=== PATIENT | male | born 1965 | race Caucasian/White ===

== ENCOUNTER 2017-08-06 09:55 | Emergency (ER) | payer OTHER ==
[~2017-08-06] VITALS: Ht 188 cm; Wt 106.6 kg
--- NOTE | 2017-08-06 10:49 | PHYS DOC ---
Past History Past Medical History: No Pertinent History Past Surgical History: Other Additional Smoking Information: CHEWS TOBACCO Alcohol Use: Occasionally Drug Use: None Adult General Chief Complaint Chief Complaint: BACK PAIN OR INJURY HPI HPI Patient is a 52 year old male who presents with back pain. States he's had a history of bulging disks in back pain over 20 years and it flares up once twice a year and he has a back brace at home and takes [id number] meds or naproxen for it. Today slipped and fell on the ice and landed on his buttocks. He denies any loss of consciousness. He denies any numbness tingling in his legs or weakness. He denies any urinary incontinence. States his pain is through his lumbar area. He has applied ice prior to arrival see that would help. Review of Systems Review of Systems Constitutional: Denies fever or chills [] Eyes: Denies change in visual acuity, redness, or eye pain [] HENT: Denies nasal congestion or sore throat [] Respiratory: Denies cough or shortness of breath [] Cardiovascular: No additional information not addressed in HPI [] GI: Denies abdominal pain, nausea, vomiting, bloody stools or diarrhea [] : Denies dysuria or hematuria [] Musculoskeletal: Positive for lumbar back pain Integument: Denies rash or skin lesions [] Neurologic: Denies headache, focal weakness or sensory changes [] Endocrine: Denies polyuria or polydipsia [] All other systems were reviewed and found to be within normal limits, except as documented in this note. Current Medications Current Medications Current Medications Medications (Trade) Dose Ordered Sig/[facility] Start Time Stop Time Status Last Admin Dose Admin Acetaminophen/ Hydrocodone Bitart (Lortab 5/325) 2 tab 1X ONCE 08/06/17 11:00 08/06/17 11:01 Ondansetron HCl (Zofran Odt) 4 mg 1X ONCE 08/06/17 11:00 08/06/17 11:01 Allergies Allergies Allergies Coded Allergies Type Severity Reaction Last Updated Verified No Known Drug Allergies 08/06/17 No Physical Exam Physical Exam Constitutional: Well developed, well nourished, no acute distress, non-toxic appearance. [] HENT: Normocephalic, atraumatic, bilateral external ears normal, oropharynx moist, no oral exudates, nose normal. [] Eyes: PERRLA, EOMI, conjunctiva normal, no discharge. [] Neck: Normal range of motion, no tenderness, supple, no stridor. [] Cardiovascular:Heart rate regular rhythm, no murmur [] Lungs & Thorax: Bilateral breath sounds clear to auscultation [] Abdomen: Bowel sounds normal, soft, no tenderness, no masses, no pulsatile masses. [] Skin: Warm, dry, no erythema, no rash. [] Back: Tender to palpation in the lumbar area, no step-offs appreciated, tender palpation paraspinally as well, no CVA tenderness. [] Extremities: No tenderness, no cyanosis, no clubbing, ROM intact, no edema. [] Neurologic: Alert and oriented X 3, normal motor function, normal sensory function, no focal deficits noted. [] Psychologic: Affect normal, judgement normal, mood normal. [] Current Patient Data Vital Signs Vital Signs Date Time Temp Pulse Resp B/P (MAP) Pulse Ox O2 Delivery O2 Flow Rate FiO2 08/06/17 10:12 97.8 60 20 96 Room Air EKG EKG [] Radiology/Procedures Radiology/[place] [address] IMAGING REPORT Signed PATIENT: YUE CANDELARIA ACCOUNT: [id number] : 1965 LOCATION: ER AGE: 52 SEX: M EXAM STATUS: REG ER ORD. PHYSICIAN: ANDREA SUÁREZ MD REASON: back pain PROCEDURE: LUMBAR SPINE MIN 4V Lumbar spine, 5 views, 08/06/2017: History: Back pain, fall There is a moderate vertebral compression fracture at L4. The fracture is most likely recent. There is mild splaying of the fracture fragments with anterior displacement of a prominent anterior fragment. The other lumbar vertebral heights are well-maintained. There are mild scattered marginal spurs. There are mild degenerative changes involving scattered facet joints. IMPRESSION: 1. Moderate L4 vertebral compression fracture, probably recent. 2. Mild to moderate scattered degenerative changes. DICTATED AND SIGNED BY: MIRANDA CASTANEDA MD DATE: 08/06/17 1120 CC: ANDREA SUÁREZ MD; ALLISON HUFF MD ~ Impressions: L4 compression fracture Course & Med Decision Making Course & Med Decision Making Pertinent Labs and Imaging studies reviewed. (See chart for details) Patient is neurovascularly intact. His pain is better after 2 [place] as it is nausea has improved as well with Zofran. [place] as a numbness saddle anesthesia weakness or other concerns. He and his are agreeable plan. He is instructed not to drink any alcohol while taking pain meds or drive. He's also instructed to cut down or stop tobacco use. We also spoke about possible options of vertebroplasty versus following up with the neurosurgeon he states [place] the services [place]. Dragon Disclaimer Dragon Disclaimer This electronic medical record was generated, in whole or in part, using a voice recognition dictation system. Departure Departure: Impression: Primary Impression: Compression fracture of L4 lumbar vertebra Disposition: 01 HOME, SELF-CARE Condition: STABLE Referrals: ALLISON HUFF MD (PCP) Patient Instructions: Lumbar Fracture Additional Instructions: You have a compression fraction of L4 in your back. Your being discharged home with [place] which is a narcotic pain medicine. You can use this medicine as needed for your pain. Please don't drive or drink alcohol when taking this medicine as it can impair judgment and make you sleepy. Please don't use any Tylenol when he uses and [place] as there is already Tylenol and [place]. You are also being discharged with Zofran, which is an oral dissolvable tablet for nausea. Please use this as needed and as instructed. You need to stop using nicotine as this has proven to delay healing. You will need to follow-up with neurosurgery or interventional radiology and have them evaluate to see if you need vertebroplasty or other services. He states he can obtain this through your primary care physician's office. Return back to the ER if you have any numbness or weakness in your genitals, butt, or legs, or if you have severe pain. Scripts Ondansetron (ZOFRAN ODT) 4 Mg Tab.rapdis 1 TAB SL Q8HRS Y for NAUSEA, #8 TAB Prov: ANDREA SUÁREZ MD 08/06/17 Hydrocodone Bit/Acetaminophen (NORCO 5-325 TABLET) 1 Each Tablet 1-2 TAB PO PRN Q6HRS Y for PAIN, #24 TAB 0 Refills Prov: ANDREA SUÁREZ MD 08/06/17 Problem Qualifiers Primary Impression: Compression fracture of L4 lumbar vertebra Encounter type: initial encounter Fracture type: closed Qualified Codes: S32.040A - Wedge compression fracture of fourth lumbar vertebra, initial encounter for closed fracture ANDREA SUÁREZ MD Aug 06, 2017 10:49
[2017-08-06] MEDS ORDERED: ONDANSETRON ODT 4 MG TAB.RAPDIS PO ONE (11:00)
[2017-08-06] MEDS ORDERED: HYDROcodone/APAP 5/325MG 1 TAB TABLET PO ONE (11:00)
--- NOTE | 2017-08-06 11:27 | RAD ---
Lumbar spine, 5 views, 08/06/2017: History: Back pain, fall There is a moderate vertebral compression fracture at L4. The fracture is most likely recent. There is mild splaying of the fracture fragments with anterior displacement of a prominent anterior fragment. The other lumbar vertebral heights are well-maintained. There are mild scattered marginal spurs. There are mild degenerative changes involving scattered facet joints. IMPRESSION: 1. Moderate L4 vertebral compression fracture, probably recent. 2. Mild to moderate scattered degenerative changes.
[2017-08-06] MEDS ORDERED: ONDA4TAB10 SL (11:58)
[2017-08-06] MEDS ORDERED: HYDR-971 PO (11:58)
[2017-08-06 12:11] VITALS: BP 118/78
== END 2017-08-06 12:16 | disposition home or self-care (01) ==
LOC: ER 09:55
DX: S32.040A Wedge compression fracture of fourth lumbar vertebra, initial encounter for closed fracture (principal); F17.220 Nicotine dependence, chewing tobacco, uncomplicated; W00.0XXA Fall on same level due to ice and snow, initial encounter; Y93.89 Activity, other specified; Y99.8 Other external cause status; Y92.89 Other specified places as the place of occurrence of the external cause
CPT/HCPCS: 72110; 99284; Q0162

== ENCOUNTER 2017-10-31 05:25 | Inpatient (IN) | payer OTHER ==
[~2017-10-31] VITALS: Ht 182.9 cm; Wt 105.8 kg
[~2017-10-31 05:25] MED LIST: HYDR-971 PO; ONDA4TAB10 SL
[2017-10-31 06:18] LABS: BASO % 0 % (0-3); EOS # 0.1 x10^3/uL (0.0-0.7); EOS % 1 % (0-3); HEMATOCRIT 47.2 % (39.0-53.0); HEMOGLOBIN 16.6 g/dL (13.0-17.5); LYMPH # 1.9 x10^3/uL (1.0-4.8); LYMPH % 13 % (24-48); MEAN CORPUSCULAR HEMOGLOBIN 32 pg (25-35); MEAN CORPUSCULAR HGB CONC 35 g/dL (31-37); MEAN CORPUSCULAR VOLUME 92 fL (79-100); MONO # 1.3 x10^3/uL (0.0-1.1); MONO % 9 % (0-9); NEUT # 11.7 x10^3uL (1.8-7.7); NEUT % 77 % (31-73); PLATELET COUNT 261 x10^3/uL (140-400); RED BLOOD COUNT 5.15 x10^6/uL (4.30-5.70); RED CELL DISTRIBUTION WIDTH 13.9 % (11.5-14.5); WHITE BLOOD COUNT 15.2 x10^3/uL (4.0-11.0)
[2017-10-31 06:24] LABS: ALBUMIN 4.1 g/dL (3.4-5.0); ALBUMIN/GLOBULIN RATIO 1.1 (1.0-1.7); CALCIUM 8.9 mg/dL (8.5-10.1); CREATININE 1.2 mg/dL (0.7-1.3); GFR 63.8; POTASSIUM 3.9 mmol/L (3.5-5.1); TOTAL BILIRUBIN 0.7 mg/dL (0.2-1.0); TOTAL PROTEIN 7.8 g/dL (6.4-8.2)
[2017-10-31] MEDS ORDERED: MORPHINE SULFATE 4 MG/ML DISP.SYRIN. IV ONE (06:30)
[2017-10-31] MEDS ORDERED: 0.9 % SODIUM CHLORIDE 10 ML DISP.SYRIN. IV PRN (06:30)
[2017-10-31] MEDS ORDERED: IV NORMAL SALINE 1,000ML 1,000 ML IV SCH (06:30)
[2017-10-31] MEDS ORDERED: PROCHLORPERAZINE 10 MG/2 ML VIAL. IV ONE (06:30)
[2017-10-31] MEDS ORDERED: IOHEXOL 300 MG/ML 75 ML VIAL. IV ONE (06:45)
[2017-10-31] MEDS ORDERED: CONTRAST GIVEN MC PRN (06:45)
[2017-10-31 06:55] LABS: % BANDS 2 % (0-9); % EOS 3 % (0-5); % LYMPHS 9 % (24-48); % MONOS 8 % (0-10); % SEGS 69 % (35-66)
[2017-10-31 06:56] LABS: PLT ESTIMATE ADEQUATE (ADEQUATE); TOXIC GRANULATION SLIGHT
--- NOTE | 2017-10-31 07:16 | RAD ---
INDICATION: LLQ PAIN, HX OF DIVERTICULITIS
75MLS OMNI 300 IV CONTRAST COMPARISON: None. TECHNIQUE: Axial CT images obtained through the abdomen and pelvis with contrast. One or more of the following individualized dose reduction techniques were utilized for this examination: 1. Automated exposure control; 2. Adjustment of the mA and/or kV according to patient size; 3. Use of iterative reconstruction technique. FINDINGS: Mild opacities at lung bases could be secondary to atelectasis given the location. Abdominal aorta is not aneurysmal. Liver is mildly low attenuation. No intrahepatic bile duct dilation. No peripancreatic fluid collection. Suspected small low-density lesion right lobe the liver. Spleen unremarkable. No left-sided hydronephrosis. Urinary bladder is partially distended. No right-sided hydronephrosis. Colonic diverticulosis. Wall thickening of the colon near the junction of the descending colon and sigmoid with adjacent edema to the fat. This is in a region of colonic diverticula. No definite periappendiceal inflammation. No dilated loops of bowel to suggest obstruction. There is some free fluid seen within the left lower quadrant adjacent to the inflamed colon. Degenerative changes the spine. Fracture at L4 vertebral body with post kyphoplasty changes. There is central canal narrowing at this level. IMPRESSION: 1. Severe wall thickening of the distal colon near the junction of the sigmoid and descending colon with adjacent edema to the fat. Could be secondary to diverticulitis but would consider obtaining a follow-up to ensure resolution if the patient has not had a recent colonoscopy to ensure that there is not a less common neoplastic causes. Within this region there are multiple diverticula identified with a focus of debris and air seen that measures approximately 14 mm adjacent to the colon at this site. Could be secondary to a large diverticula but a small focal contained perforation in the region is not excluded. 2. L4 fracture is identified with some retropulsion and narrowing of the central canal and post kyphoplasty changes. There is some suspected blood adjacent to the fracture site Electronically signed by: Mir Arnold MD (10/31/2017 7:13 AM) [facility]
--- NOTE | 2017-10-31 07:51 | PHYS DOC ---
Past History Past Medical History: Diverticulitis Past Surgical History: Other Additional Smoking Information: smokeless tobacco Alcohol Use: Occasionally Drug Use: None Adult General Chief Complaint Chief Complaint: ABDOMINAL PAIN HPI HPI 52-year-old male patient with history of diverticulitis complaining of intermittent episodes of lower abdominal pain the last 4 days as a cramping pain with radiation to left flank and few episode of nausea without fever, chills, diarrhea, vomiting, anorexia, urinary problem. Patient states the pain was gradually getting worse and since last night became constant episodes of sharp pain and rated his pain 8/10. Patient states he had feeling of having bowel movements but only had several episodes of small amount of hard stool. Patient states she had the same symptoms with previous episodes of diverticulitis. Review of Systems Review of Systems Constitutional: Denies fever or chills [] Eyes: Denies change in visual acuity, redness, or eye pain [] HENT: Denies nasal congestion or sore throat [] Respiratory: Denies cough or shortness of breath [] Cardiovascular: No additional information not addressed in HPI [] GI: Reports abdominal pain, nausea, denies vomiting, bloody stools or diarrhea [ ] : Denies dysuria or hematuria [] Musculoskeletal: Denies back pain or joint pain [] Integument: Denies rash or skin lesions [] Neurologic: Denies headache, focal weakness or sensory changes [] Endocrine: Denies polyuria or polydipsia [] All other systems were reviewed and found to be within normal limits, except as documented in this note. Current Medications Current Medications Current Medications Medications (Trade) Dose Ordered Sig/[facility] Start Time Stop Time Status Last Admin Dose Admin Ciprofloxacin Lactate 200 ml @ 200 mls/hr 1X ONCE 10/31/17 08:45 10/31/17 09:44 Info (Do NOT chart on this entry -- for MONITORING) 1 each PRN DAILY PRN 10/31/17 06:45 11/02/17 06:44 Iohexol (Omnipaque 300 Mg/ml) 75 ml 1X ONCE 10/31/17 06:45 10/31/17 06:46 DC 10/31/17 06:39 75 ML Metronidazole 100 ml @ 100 mls/hr 1X ONCE 10/31/17 07:45 10/31/17 08:44 Morphine Sulfate (Morphine 4mg Syringe) 4 mg 1X ONCE 10/31/17 06:30 10/31/17 06:33 DC 10/31/17 06:25 4 MG Prochlorperazine Edisylate (Compazine) 10 mg 1X ONCE 10/31/17 06:30 10/31/17 06:33 DC 10/31/17 06:25 10 MG Sodium Chloride (Normal Saline Flush) 10 ml QSHIFT PRN 10/31/17 06:30 10/31/17 06:25 10 ML Allergies Allergies Allergies Coded Allergies Type Severity Reaction Last Updated Verified No Known Drug Allergies 08/06/17 No Physical Exam Physical Exam Constitutional: Well developed, well nourished, moderate distress, non-toxic appearance. [] HENT: Normocephalic, atraumatic, oropharynx moist, no oral exudates, nose normal. [] Eyes: PERRLA, EOMI, conjunctiva normal, no discharge. [] Neck: Normal range of motion, no tenderness, supple, no stridor. [] Cardiovascular:Heart rate regular rhythm, no murmur [] Lungs & Thorax: Bilateral breath sounds clear to auscultation [] Abdomen: Bowel sounds normal, soft, left lower quadrant tenderness and rebound tenderness, no masses, no pulsatile masses. [] Skin: Warm, dry, no erythema, no rash. [] Back: No tenderness, no CVA tenderness. [] Extremities: No tenderness, no cyanosis, no clubbing, ROM intact, no edema. [] Neurologic: Alert and oriented X 3, normal motor function, normal sensory function, no focal deficits noted. [] Psychologic: Affect normal, judgement normal, mood normal. [] Current Patient Data Vital Signs Vital Signs Date Time Temp Pulse Resp B/P (MAP) Pulse Ox O2 Delivery O2 Flow Rate FiO2 10/31/17 07:28 57 123/72 (89) 98 10/31/17 06:25 20 Room Air 10/31/17 05:41 98.5 Lab Results Laboratory Tests Test 10/31/17 05:45 White Blood Count 15.2 x10^3/uL (4.0-11.0) H Red Blood Count 5.15 x10^6/uL (4.30-5.70) Hemoglobin 16.6 g/dL (13.0-17.5) Hematocrit 47.2 % (39.0-53.0) Mean Corpuscular Volume 92 fL (79-100) Mean Corpuscular Hemoglobin 32 pg (25-35) Mean Corpuscular Hemoglobin Concent 35 g/dL (31-37) Red Cell Distribution Width 13.9 % (11.5-14.5) Platelet Count 261 x10^3/uL (140-400) Neutrophils (%) (Auto) 77 % (31-73) H Lymphocytes (%) (Auto) 13 % (24-48) L Monocytes (%) (Auto) 9 % (0-9) Eosinophils (%) (Auto) 1 % (0-3) Basophils (%) (Auto) 0 % (0-3) Neutrophils # (Auto) 11.7 x10^3uL (1.8-7.7) H Lymphocytes # (Auto) 1.9 x10^3/uL (1.0-4.8) Monocytes # (Auto) 1.3 x10^3/uL (0.0-1.1) H Eosinophils # (Auto) 0.1 x10^3/uL (0.0-0.7) Basophils # (Auto) 0.0 x10^3/uL (0.0-0.2) Segmented Neutrophils % 69 % (35-66) H Band Neutrophils % 2 % (0-9) Lymphocytes % 9 % (24-48) L Monocytes % 8 % (0-10) Eosinophils % 3 % (0-5) Toxic Granulation Slight Dohle Bodies Present Platelet Estimate Adequate (ADEQUATE) Sodium Level 139 mmol/L (136-145) Potassium Level 3.9 mmol/L (3.5-5.1) Chloride Level 103 mmol/L (98-107) Carbon Dioxide Level 25 mmol/L (21-32) Anion Gap 11 (6-14) Blood Urea Nitrogen 11 mg/dL (8-26) Creatinine 1.2 mg/dL (0.7-1.3) Estimated GFR (Cockcroft-Gault) 63.8 BUN/Creatinine Ratio 9 (6-20) Glucose Level 113 mg/dL (70-99) H Calcium Level 8.9 mg/dL (8.5-10.1) Total Bilirubin 0.7 mg/dL (0.2-1.0) Aspartate Amino Transferase (AST) 20 U/L (15-37) Alanine Aminotransferase (ALT) 44 U/L (16-63) Alkaline Phosphatase 96 U/L (46-116) Total Protein 7.8 g/dL (6.4-8.2) Albumin 4.1 g/dL (3.4-5.0) Albumin/Globulin Ratio 1.1 (1.0-1.7) Lipase 157 U/L (73-393) EKG EKG [] Radiology/Procedures Radiology/Procedures [[address] [address] IMAGING REPORT Signed PATIENT: YUE CANDELARIA ACCOUNT: [id number] : 1965 LOCATION: ER AGE: 52 SEX: M EXAM STATUS: REG ER ORD. PHYSICIAN: LAYTON GARZA MD REASON: LLQ pain , h/o diverticulitis PROCEDURE: CT ABD PELV W/ IV CONTRST ONLY INDICATION: LLQ PAIN, HX OF DIVERTICULITIS
75MLS OMNI 300 IV CONTRAST COMPARISON: None. TECHNIQUE: Axial CT images obtained through the abdomen and pelvis with contrast. One or more of the following individualized dose reduction techniques were utilized for this examination: 1. Automated exposure control; 2. Adjustment of the mA and/or kV according to patient size; 3. Use of iterative reconstruction technique. FINDINGS: Mild opacities at lung bases could be secondary to atelectasis given the location. Abdominal aorta is not aneurysmal. Liver is mildly low attenuation. No intrahepatic bile duct dilation. No peripancreatic fluid collection. Suspected small low-density lesion right lobe the liver. Spleen unremarkable. No left-sided hydronephrosis. Urinary bladder is partially distended. No right-sided hydronephrosis. Colonic diverticulosis. Wall thickening of the colon near the junction of the descending colon and sigmoid with adjacent edema to the fat. This is in a region of colonic diverticula. No definite periappendiceal inflammation. No dilated loops of bowel to suggest obstruction. There is some free fluid seen within the left lower quadrant adjacent to the inflamed colon. Degenerative changes the spine. Fracture at L4 vertebral body with post kyphoplasty changes. There is central canal narrowing at this level. IMPRESSION: 1. Severe wall thickening of the distal colon near the junction of the sigmoid and descending colon with adjacent edema to the fat. Could be secondary to diverticulitis but would consider obtaining a follow-up to ensure resolution if the patient has not had a recent colonoscopy to ensure that there is not a less common neoplastic causes. Within this region there are multiple diverticula identified with a focus of debris and air seen that measures approximately 14 mm adjacent to the colon at this site. Could be secondary to a large diverticula but a small focal contained perforation in the region is not excluded. 2. L4 fracture is identified with some retropulsion and narrowing of the central canal and post kyphoplasty changes. There is some suspected blood adjacent to the fracture site Electronically signed by: Shannon Arnold MD (10/31/2017 7:13 AM) [facility] DICTATED AND SIGNED BY: SHANNON ARNOLD MD DATE: 10/31/17701 CC: ALLISON HUFF MD; LAYTON GARZA MD ~ ] Course & Med Decision Making Course & Med Decision Making Pertinent Labs and Imaging studies reviewed. (See chart for details) Evaluation of patient in ER showed 52-year-old male patient with history of colitis with complaining of lower abdominal pain for 4 days. Patient had left lower quadrant tenderness and rebound tenderness with leukocytosis of 15,000. CT of abdomen and pelvis showed severe thickening of wall of left colon with diverticulitis. As a patient had a 4 compression fracture that patient stated he had fracture in July here. The patient treated with morphine and felt better. Dr. Calles informed at 0750 and agreed with plan of admission. Patient and his informed about of result and plan of admission. [] Dragon Disclaimer Dragon Disclaimer This electronic medical record was generated, in whole or in part, using a voice recognition dictation system. Departure Departure: Impression: Primary Impression: Acute diverticulitis Additional Impressions: Leukocytosis History of compression fracture of spine Disposition: ADMITTED INPATIENT (At 0750) Admitting Physician: Lisandro Calles Condition: IMPROVED Referrals: ALLISON HUFF MD (PCP) Problem Qualifiers LAYTON GARZA MD October 31, 2017 07:51
[2017-10-31] MEDS ORDERED: CETI10TA22 PO (08:29)
[2017-10-31] MEDS ORDERED: FLUT9.9S NS (08:29)
[2017-10-31] MEDS ORDERED: CIPROFLOXACIN 400MG PREMIX 200 ML IV ONE (08:45)
[2017-10-31 09:15] LABS: BACTERIA,URINE 0 /HPF (0-FEW); BILIRUBIN,URINE NEG (NEG); CLARITY,URINE CLEAR; COLOR,URINE YELLOW; GLUCOSE,URINE NEG (NEG); NITRITE,URINE NEG (NEG); RBC,URINE RARE /HPF (0-2); SQUAMOUS EPITHELIAL CELL,UR OCC /LPF; UROBILINOGEN,URINE 0.2 mg/dL (0.2 mg/dL); WBC,URINE RARE /HPF (0-4)
[2017-10-31 09:18] VITALS: BP 117/71
[2017-10-31] MEDS: IV NORMAL SALINE 1,000ML 1,000 ML IV SCH ×3 (09:28→23:38)
[2017-10-31 10:54] VITALS: BP 119/73
[2017-10-31] MEDS ORDERED: MORPHINE SULFATE 4 MG/ML DISP.SYRIN. IV PRN (11:45)
[2017-10-31] MEDS ORDERED: OMEG1CAP38 PO (11:46)
[2017-10-31] MEDS ORDERED: MULT1TAB52 PO (11:46)
[2017-10-31 15:33] VITALS: BP 122/73
[2017-10-31] MEDS ORDERED: ONDANSETRON PF 4 MG/2 ML VIAL. IV PRN (16:15)
[2017-10-31] MEDS ORDERED: ONDANSETRON ODT 4 MG TAB.RAPDIS PO PRN (16:30)
[2017-10-31] MEDS: ACETAMINOPHEN 650 MG/20.3 ML SOLUTION. PO PRN ×2 (16:31→23:38)
--- NOTE | 2017-10-31 16:45 | HP ---
ADMIT DATE: 10/31/2017 HISTORY OF PRESENT ILLNESS: The patient is a 52-year-old male patient who basically came to the Emergency Room complaining of abdominal pain that started originally in the suprapubic area and moved to the left lower quadrant, started last Saturday and has progressively worsened. Has some nausea, but no vomiting, some chills, but no fever or rigor. He apparently has had 2 episodes of diverticulitis before. He denied any diarrhea or vomiting. Denied any dysuria, frequency or hematuria. The pain has gradually worsened. He eventually came to the Emergency Room where he was investigated. He was found to have leukocytosis and a CT scan of the abdomen and pelvis showed that he has severe wall thickening of distal colon near junction of the sigmoid and descending colon with adjacent edema to the fat, could be secondary to diverticulitis, but should consider obtaining a followup to ensure resolution and the patient has not had any recent colonoscopy to ensure that there is not a less common neoplastic causes within this region. There are multiple diverticula identified. The focus of decrease in air seen that measures approximately 14 mm adjacent to the colon at the site could be secondary to a large diverticula with a small focal contained perforation and the region is not excluded. Has L4 fracture identified with some retropulsion and narrowing of the central canal post-kyphoplasty changes. There is some suspected blood adjacent to the fracture site. The patient was admitted, started on IV fluid and IV antibiotic in the form of ciprofloxacin as well as Flagyl and also pain medication as well as antiemetic. 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 PAST SURGICAL HISTORY: Significant for melanoma resection, kyphoplasty of L4 and colonoscopy x 2. ALLERGIES: No known drug allergies. MEDICATIONS: He is on Flonase and Zyrtec for his seasonal allergy. FAMILY HISTORY: He has 2 brothers. The older brother has hypertension, obstructive sleep apnea and diabetes. Second younger brother has depression and atrial fibrillation. Father at the age of 75 because of congestive heart failure. Mother is still alive at age of 78 and she apparently underwent a nephrectomy and is known to have hypothyroidism. SOCIAL HISTORY: He is , has 2 boys. He chews tobacco, drinks 1-2 beers during the weekdays and over the weekend, he drinks whiskey or 6-8 beers in the weekends. The last drink was last Saturday when he was at [employer]. He does not use any drugs. 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 REVIEW OF SYSTEMS: The patient denied any blurring of vision, cataract, glaucoma or macular degeneration. Denied any headaches, tinnitus, or sensorineural deafness. Denies any nosebleeds, stuffy nose or postnasal drip. Denied any sore throat, sore tongue, toothache, hoarseness of voice or difficulty swallowing. Did complain of nausea, but no vomiting. Has had bowel movement yesterday. Denied any hematemesis, melena or hematochezia. Denied any dysuria, frequency or hematuria. Denied any chest pain, shortness of breath, orthopnea, or paroxysmal nocturnal dyspnea. Denied any cough, phlegm or hemoptysis. PHYSICAL EXAMINATION: GENERAL: On examining him, he looked well and was clearly in no apparent respiratory distress. He was pale, but no jaundice, cyanosis or thyromegaly. No jugular venous distention. No limb edema. VITAL SIGNS: His heart rate was 65, blood pressure was 122/73, temperature was 101.7, respiratory rate was 20, and oxygen saturation was 95% on room air. HEAD, EYES, EARS, NOSE, and THROAT: Showed normocephalic, atraumatic. NECK: Supple. HEART: Showed normal first and second heart sounds with no gallop, rub or murmur. CHEST: Clear to auscultation. No crepitation or rhonchi. ABDOMEN: Distended, soft. Tenderness mostly in the left lower quadrant. There is no guarding or rigidity. No organomegaly. Hernial orifices intact. Bowel sounds normal. NEUROLOGIC: He was awake, alert, responding appropriately. All cranial nerves intact. EXTREMITIES: He moves extremities without difficulty, ambulates without assistance or assistive devices. LABORATORY DATA: On admission showed a white cell count 15,200, hemoglobin 16.6, hematocrit 47.2, MCV 92, and platelet count 261,000. Serum sodium was 139, potassium 3.9, chloride 103, bicarbonate 25, anion gap of 11, BUN 11, creatinine 1.2, estimated GFR was 64 mL per minute. His glucose was 113, calcium was 8.9. Total bilirubin, AST, ALT, alkaline phosphatase were normal. Total protein was 7.8, albumin 4.1, lipase 157. Urinalysis was unremarkable. The CT scan of the abdomen showed that there is severe wall thickening of the distal colon near junction of the sigmoid and descending colon with adjacent edema to the fat, could be secondary to diverticulitis, but would consider obtaining a followup to ensure resolution if the patient has not had recent colonoscopy, to ensure that there is not a less common neoplastic cause within this region. There are also multiple diverticula identified with a focus of decrease in air seen that measures approximately 14 mm adjacent to the colon at this site. Has also L4 fracture identified with some retropulsion and narrowing of the central canal and post-kyphoplasty changes. There is some trace of suspected blood adjacent to the fracture site. ASSESSMENT AND PLAN: The patient was admitted with acute diverticulitis. We will continue with the Flagyl 500 mg 3 times a day and Cipro 400 mg twice a day. Continue with IV fluid and start him on clear liquid continue the IV morphine and antiemetic. Follow his labs closely and obviously clinically and if there is any signs of deterioration or evidence of perforation, we will send him to [facility]. DESTINEE WILLIS MD DR: CHICHI/fidencio JOB#: [id number] / [id number]
[2017-10-31 19:22] VITALS: BP 120/74
[2017-10-31] MEDS: LACTOBACILLUS RHAMNOSUS GG 1 CAPSULE. PO SCH (21:04)
[2017-10-31] MEDS: CIPROFLOXACIN 400MG PREMIX 200 ML IV SCH (21:04)
[2017-10-31 23:29] VITALS: BP 123/77
[2017-11-01 05:57] VITALS: BP 121/77
[2017-11-01 06:39] LABS: BASO # 0.1 x10^3/uL (0.0-0.2); BASO % 1 % (0-3); EOS # 0.2 x10^3/uL (0.0-0.7); EOS % 2 % (0-3); HEMATOCRIT 41.6 % (39.0-53.0); HEMOGLOBIN 14.8 g/dL (13.0-17.5); LYMPH # 1.9 x10^3/uL (1.0-4.8); LYMPH % 19 % (24-48); MEAN CORPUSCULAR HEMOGLOBIN 33 pg (25-35); MEAN CORPUSCULAR HGB CONC 36 g/dL (31-37); MEAN CORPUSCULAR VOLUME 92 fL (79-100); MONO # 0.9 x10^3/uL (0.0-1.1); MONO % 10 % (0-9); NEUT # 6.5 x10^3uL (1.8-7.7); NEUT % 68 % (31-73); PLATELET COUNT 200 x10^3/uL (140-400); RED BLOOD COUNT 4.54 x10^6/uL (4.30-5.70); RED CELL DISTRIBUTION WIDTH 13.4 % (11.5-14.5); WHITE BLOOD COUNT 9.6 x10^3/uL (4.0-11.0)
[2017-11-01 06:49] LABS: ALBUMIN 3.2 g/dL (3.4-5.0); CALCIUM 8.1 mg/dL (8.5-10.1); CREATININE 1.1 mg/dL (0.7-1.3); GFR 70.6; POTASSIUM 3.8 mmol/L (3.5-5.1); TOTAL PROTEIN 6.5 g/dL (6.4-8.2)
[2017-11-01] MEDS ORDERED: CETIRIZINE HCL 10 MG TABLET PO SCH (09:00)
[2017-11-01] MEDS ORDERED: FLUTICASONE 50MCG/NASAL SPRAY 16GM BOTTLE. NS SCH (09:00)
[2017-11-01] MEDS: LACTOBACILLUS RHAMNOSUS GG 1 CAPSULE. PO SCH (09:03)
[2017-11-01] MEDS: CIPROFLOXACIN 400MG PREMIX 200 ML IV SCH (09:04)
[2017-11-01 12:34] VITALS: BP 122/70
[2017-11-01] MEDS ORDERED: CIPR500T PO (14:36)
[2017-11-01] MEDS ORDERED: METR500T PO (14:36)
[2017-11-01] MEDS ORDERED: HYDR-2758 PO (14:36)
--- NOTE | 2017-11-01 21:20 | DS ---
DATE OF DISCHARGE: 11/01/2017 HOSPITAL COURSE: This is a 52-year-old male patient, who was admitted to the Emergency Room with a complaint of suprapubic and left lower quadrant pain. Investigation showed that he has leukocytosis and CT scan of the abdomen showed he has severe wall thickening of the distal colon near junction of the sigmoid and descending colon with adjacent edema to the fat. He apparently has had 2 episodes of diverticulitis before and has had colonoscopy twice. We did start him on IV antibiotic in the form of ciprofloxacin as well as Flagyl as well as pain medication and was started on a clear liquid diet and he did actually very well, has no further episode. He has been afebrile. His white cell count has normalized from 15,000 to 9600, has had no pain. PHYSICAL EXAMINATION: GENERAL: When I saw him today, he looked well and was clearly in no apparent respiratory distress, pale, but no jaundice, cyanosis, or thyromegaly. No jugular venous distension. No limb edema. VITAL SIGNS: His heart rate was 49, blood pressure was 122/70, temperature was 97.7, respiratory rate 20, and oxygen saturation was 97%. HEAD, EYES, EARS, NOSE AND THROAT: Normocephalic, atraumatic. NECK: Supple. HEART: Showed normal first and second heart sounds with no gallop, rub or murmur. CHEST: Clear to auscultation. No crepitation or rhonchi. ABDOMEN: Distended, soft, nontender. No guarding or rigidity. No organomegaly. Hernial orifice intact. Bowel sounds normal. NEUROLOGIC: He was awake, alert, responding appropriately. All cranial nerves intact. He moves extremities without difficulty, ambulates without assistance or assistive devices. LABORATORY DATA: Showed a white cell count 9600, hemoglobin 15, hematocrit 42, MCV 92, and platelet count of 200,000. His serum sodium was 138, potassium 3.8, chloride 106, bicarbonate 26, anion gap of 6, BUN 9, creatinine 1.1, estimated GFR was 70 mL per minute. His glucose was 99, calcium was 8.1. Total bilirubin, AST, ALT, alkaline phosphatase were normal. His total protein was 6.5, albumin 3.2. Urinalysis was unremarkable. DISCHARGE MEDICATIONS: He will be discharged home to continue on ciprofloxacin 500 mg twice a day, metronidazole 500 mg 3 times a day. He should continue also on hydrocodone 5/325 one tablet every 6 hours. He should continue also on other medications including cetirizine, Flonase, and multivitamin. FINAL DISCHARGE DIAGNOSES: Acute diverticulitis, responding very well; seasonal allergies and hyperlipidemia. DESTINEE WILLIS MD DR: CHICHI/fidencio JOB#: [id number] / [id number]
== END 2017-11-01 15:30 | disposition home or self-care (01) | DRG 392 ==
LOC: ER 05:31 → 1 SOUTH 08:23
PROVIDERS: ADMIT Internal Medicine; ATTEND Internal Medicine
DX: K57.32 Diverticulitis of large intestine without perforation or abscess without bleeding (principal); E78.5 Hyperlipidemia, unspecified; J30.2 Other seasonal allergic rhinitis; Z72.0 Tobacco use; Z81.8 Family history of other mental and behavioral disorders; Z82.49 Family history of ischemic heart disease and other diseases of the circulatory system; Z85.820 Personal history of malignant melanoma of skin; Z83.3 Family history of diabetes mellitus
CPT/HCPCS: 36415; 74177; 80053; 81001; 83690; 85007; 85025; 96361; 96365; 96375; J0744; J0780; J2270; J3490; Q9967; 99285-25; J7030

== ENCOUNTER 2018-07-08 09:21 | Inpatient (IN) | payer OTHER ==
[~2018-07-08] VITALS: Ht 182.9 cm; Wt 106.6 kg
[~2018-07-08 09:21] MED LIST changes: +CETI10TA22 PO; +CIPR500T PO; +FLUT9.9S NS; +HYDR-2155 PO; +HYDR-3165 PO; -HYDR-971 PO; +METR500T PO; +MULT1TAB52 PO; +OMEG1CAP38 PO
[2018-07-08] MEDS ORDERED: IV NORMAL SALINE 1,000ML 1,000 ML IV ONE (09:45)
[2018-07-08 10:00] LABS: BASO % 0 % (0-3); EOS % 0 % (0-3); HEMATOCRIT 52.3 % (39.0-53.0); LYMPH # 0.5 x10^3/uL (1.0-4.8); LYMPH % 3 % (24-48); MEAN CORPUSCULAR HEMOGLOBIN 31 pg (25-35); MEAN CORPUSCULAR HGB CONC 35 g/dL (31-37); MEAN CORPUSCULAR VOLUME 91 fL (79-100); MONO # 0.3 x10^3/uL (0.0-1.1); MONO % 2 % (0-9); NEUT # 13.7 x10^3uL (1.8-7.7); NEUT % 94 % (31-73); PLATELET COUNT 262 x10^3/uL (140-400); RED BLOOD COUNT 5.75 x10^6/uL (4.30-5.70); RED CELL DISTRIBUTION WIDTH 13.4 % (11.5-14.5); WHITE BLOOD COUNT 14.6 x10^3/uL (4.0-11.0)
[2018-07-08] MEDS ORDERED: ONDANSETRON PF 4 MG/2 ML VIAL. IV ONE (10:15)
[2018-07-08 10:19] LABS: ALBUMIN 4.4 g/dL (3.4-5.0); ALBUMIN/GLOBULIN RATIO 1.3 (1.0-1.7); CALCIUM 9.3 mg/dL (8.5-10.1); CREATININE 1.4 mg/dL (0.7-1.3); GFR 53.2; POTASSIUM 4.2 mmol/L (3.5-5.1); TOTAL BILIRUBIN 0.8 mg/dL (0.2-1.0); TOTAL PROTEIN 7.8 g/dL (6.4-8.2)
[2018-07-08] MEDS ORDERED: IOHEXOL 300 MG/ML 75 ML VIAL. IV ONE (10:30)
--- NOTE | 2018-07-08 10:45 | RAD ---
PQRS Compliance Statement: One or more of the following individualized dose reduction techniques were utilized for this examination: 1. Automated exposure control 2. Adjustment of the mA and/or kV according to patient size 3. Use of iterative reconstruction technique CT abdomen/pelvis with contrast 07/08/2018 10:08 AM INDICATION: Abdominal pain with history of diverticulitis. Nausea and vomiting. COMPARISON: CT abdomen/pelvis October 31, 2017 TECHNIQUE: Multiple axial CT images of the abdomen and pelvis were obtained after the intravenous administration of 75 mL Omnipaque 300. Coronal and sagittal reformats are provided. FINDINGS: Benign calcified granulomas are identified in the left lung base measuring up to 5 mm. Otherwise, lung bases are clear. Heart size is within normal limits. 8 mm hypoattenuating lesion in the peripheral right hepatic lobe is compatible with a simple cyst. There is hypoattenuation of the hepatic parenchyma suggestive of hepatic steatosis. The spleen is not enlarged. Adrenal glands are normal in appearance. No peripancreatic inflammatory changes are identified. Main pancreatic duct measures up to 3 mm. Gallbladder is normal in appearance. No intrahepatic or extrahepatic biliary ductal dilatation. The kidneys enhance symmetrically. There is no suspicious renal mass. There is no hydronephrosis. There are no suspected calculi within the kidneys, ureters or urinary bladder. The abdominal aorta is normal in course and caliber. There are no pathologically enlarged lymph nodes in the abdomen and pelvis. There is no abdominal free fluid. There is no free intraperitoneal air. High density material is identified within the stomach, likely from ingested material. Small large bowel loops are normal in caliber. There is mild thickening of the sigmoid colon without significant pericolonic inflammatory changes. Mild diverticulosis. Appendix is normal. Urinary bladder is within normal limits given degree of distention. No suspicious pelvic masses are identified. Prostate and seminal vesicles appear normal. No suspicious osseous amount is identified. Spinal augmentation changes are identified at L4. IMPRESSION: Previously seen inflammatory changes from CT abdomen/pelvis of October 31, 2017 appear predominantly resolved. There may be mild colonic wall thickening in the region of previous inflammation. Consideration may be given for early colitis versus chronic inflammatory changes. Electronically signed by: Ruth Bird MD (07/08/2018 10:40 AM) [facility]
--- NOTE | 2018-07-08 11:08 | PHYS DOC ---
Past History Past Medical History: Diverticulitis Past Surgical History: Other Alcohol Use: Occasionally Drug Use: None Adult General Chief Complaint Chief Complaint: ABDOMINAL PAIN HPI HPI Patient is a 53 year old M who presents with left-sided abdominal pain starting last night with significant worsening this morning. He also describes right- sided abdominal pain. He says this pain is dull with fluctuating intensity. He feels it is similar to his previous episode of diverticulitis. He has had chills and body aches associated with this pain. He describes nausea this morning. He feels his pain is worse with movement or palpation. He has no alleviating factors. Review of Systems Review of Systems Constitutional: Negative except history of present illness Eyes: Denies change in visual acuity, redness, or eye pain [] HENT: Denies nasal congestion or sore throat [] Respiratory: Denies cough or shortness of breath [] Cardiovascular: No additional information not addressed in HPI [] GI: Negative except history of present illness : Denies dysuria or hematuria [] Musculoskeletal: Denies back pain or joint pain [] Integument: Denies rash or skin lesions [] Neurologic: Denies headache, focal weakness or sensory changes [] Endocrine: Denies polyuria or polydipsia [] All other systems were reviewed and found to be within normal limits, except as documented in this note. Family History Family History No pertinent medical history was reported Current Medications Current Medications Current Medications Medications (Trade) Dose Ordered Sig/Ayaan Start Time Stop Time Status Last Admin Dose Admin Ciprofloxacin Lactate 200 ml @ 200 mls/hr 1X ONCE 07/08/18 11:20 07/08/18 12:19 Fentanyl Citrate (Fentanyl 2ml Vial) 50 mcg 1X ONCE 07/08/18 10:15 07/08/18 10:16 DC 07/08/18 09:57 50 MCG Iohexol (Omnipaque 300 Mg/ml) 75 ml 1X ONCE 07/08/18 10:30 07/08/18 10:31 DC 07/08/18 10:18 75 ML Metronidazole 100 ml @ 100 mls/hr 1X ONCE 07/08/18 11:20 07/08/18 12:19 Ondansetron HCl (Zofran) 4 mg 1X ONCE 07/08/18 10:15 07/08/18 10:16 DC 07/08/18 09:57 4 MG Sodium Chloride 1,000 ml @ 1,000 mls/hr 1X ONCE 07/08/18 09:45 07/08/18 10:44 DC 07/08/18 09:52 1,000 MLS/HR Allergies Allergies Allergies Coded Allergies Type Severity Reaction Last Updated Verified No Known Drug Allergies 08/06/17 No Physical Exam Physical Exam Constitutional: Well developed, well nourished. Mild distress noted on initial exam HENT: Normocephalic, atraumatic, Eyes: EOMI, conjunctiva normal, no discharge. [] Neck: Normal range of motion, no tenderness, supple, no stridor. [] Cardiovascular:Heart rate regular rhythm, Lungs & Thorax: Bilateral breath sounds clear to auscultation [] Abdomen: Bowel sounds normal, no masses, no pulsatile masses. [] Moderate pain noted in the left lower quadrant with palpation, mild generalized pain Skin: Warm, dry, no erythema, no rash. [] Back: No tenderness, no CVA tenderness. [] Extremities: No tenderness, no cyanosis, no clubbing, ROM intact, no edema. [] Neurologic: Alert and oriented X 3, normal motor function, normal sensory function, no focal deficits noted. [] Psychologic: Affect normal, judgement normal, mood normal. [] Current Patient Data Vital Signs Vital Signs Date Time Temp Pulse Resp B/P (MAP) Pulse Ox O2 Delivery O2 Flow Rate FiO2 07/08/18 09:57 22 97 Room Air Lab Results Laboratory Tests Test 07/08/18 09:40 White Blood Count 14.6 x10^3/uL (4.0-11.0) H Red Blood Count 5.75 x10^6/uL (4.30-5.70) H Hemoglobin 18.0 g/dL (13.0-17.5) H Hematocrit 52.3 % (39.0-53.0) Mean Corpuscular Volume 91 fL (79-100) Mean Corpuscular Hemoglobin 31 pg (25-35) Mean Corpuscular Hemoglobin Concent 35 g/dL (31-37) Red Cell Distribution Width 13.4 % (11.5-14.5) Platelet Count 262 x10^3/uL (140-400) Neutrophils (%) (Auto) 94 % (31-73) H Lymphocytes (%) (Auto) 3 % (24-48) L Monocytes (%) (Auto) 2 % (0-9) Eosinophils (%) (Auto) 0 % (0-3) Basophils (%) (Auto) 0 % (0-3) Neutrophils # (Auto) 13.7 x10^3uL (1.8-7.7) H Lymphocytes # (Auto) 0.5 x10^3/uL (1.0-4.8) L Monocytes # (Auto) 0.3 x10^3/uL (0.0-1.1) Eosinophils # (Auto) 0.0 x10^3/uL (0.0-0.7) Basophils # (Auto) 0.0 x10^3/uL (0.0-0.2) Sodium Level 137 mmol/L (136-145) Potassium Level 4.2 mmol/L (3.5-5.1) Chloride Level 103 mmol/L (98-107) Carbon Dioxide Level 22 mmol/L (21-32) Anion Gap 12 (6-14) Blood Urea Nitrogen 17 mg/dL (8-26) Creatinine 1.4 mg/dL (0.7-1.3) H Estimated GFR (Cockcroft-Gault) 53.2 BUN/Creatinine Ratio 12 (6-20) Glucose Level 149 mg/dL (70-99) H Lactic Acid Level 2.1 mmol/L (0.4-2.0) H Calcium Level 9.3 mg/dL (8.5-10.1) Total Bilirubin 0.8 mg/dL (0.2-1.0) Aspartate Amino Transferase (AST) 20 U/L (15-37) Alanine Aminotransferase (ALT) 53 U/L (16-63) Alkaline Phosphatase 89 U/L (46-116) Total Protein 7.8 g/dL (6.4-8.2) Albumin 4.4 g/dL (3.4-5.0) Albumin/Globulin Ratio 1.3 (1.0-1.7) Lipase 137 U/L (73-393) EKG EKG [] Radiology/Procedures Radiology/Procedures CT scan of the abdomen showed signs of colitis. Course & Med Decision Making Course & Med Decision Making Pertinent Labs and Imaging studies reviewed. (See chart for details) IV fluids, nausea medication, pain medication and IV antibiotics were started. Blood cultures were obtained prior to administration of antibiotics. Dragon Disclaimer Dragon Disclaimer This electronic medical record was generated, in whole or in part, using a voice recognition dictation system. Departure Departure: Impression: Primary Impression: Acute colitis Disposition: ADMITTED INPATIENT Admitting Physician: Lisandro Calles Referrals: ALLISON HUFF MD (PCP) MIC RODRIGUEZ MD Jul 08, 2018 11:08
[2018-07-08] MEDS ORDERED: CIPROFLOXACIN 400MG PREMIX 200 ML IV ONE (11:20)
[2018-07-08 14:13] VITALS: BP 106/69
[2018-07-08] MEDS ORDERED: ACETAMINOPHEN 500 MG TABLET PO PRN ×2 (15:00→15:15)
--- NOTE | 2018-07-08 18:22 | HP ---
ADMIT DATE: 07/08/2018 HISTORY OF PRESENT ILLNESS: The patient is a 53-year-old male patient who came to the Emergency Room complaining of severe left upper quadrant pain, nausea, but no vomiting and has had recurrent episodes of diarrhea. The abdominal pain started last night and worsened this morning, described right-sided abdominal pain. He states the pain is dull, fluctuating intensity. He feels it is similar to previous episodes of diverticulitis and had chills, body aches associated with this pain. He describes nausea this morning. He feels his pain is worse with movement or palpation. He has no alleviating factor. He said he has recurrent bouts of diarrhea about every 15 minutes for about continuously for 4 hours. According to him, he has fever, but no chills. None of his children has similar problems because they ____ with him at home from college. His was not at home. He was extensively evaluated in the Emergency Room. His lab work showed that he has leukocytosis, the white cell count 14,600. His chemistry showed that his serum creatinine slightly elevated and has mild lactic acidosis and he has had a CT scan of the abdomen and pelvis, it showed that he has previously seen inflammatory changes from CT abdomen and pelvis on 10/31/2017 that has predominantly resolved. There may be mild colonic wall thickening in the region of the previous inflammation. The patient was admitted with acute colitis. PAST MEDICAL HISTORY: Significant for diverticulitis x 2, seasonal allergies and malignant tumor of his right ankle that was resected turned out to be a malignant melanoma. PAST SURGICAL HISTORY: Significant for kyphoplasty of the L4, colonoscopy x 2. He had also tonsillectomy and adenoidectomy and right fifth finger amputation. ALLERGIES: He has no known drug allergies. MEDICATIONS: He is mostly on Flonase and Zyrtec for seasonal allergy. FAMILY HISTORY: He has 2 brothers, the older brother has hypertension, obstructive sleep apnea, and diabetes. His younger brother has depression and atrial fibrillation. Father at age of 75 because of congestive heart failure. Mother is still alive at ____ and has apparently underwent a nephrectomy and is known to have hypothyroidism. SOCIAL HISTORY: He is , has 2 sons. He chews tobacco and drinks 1-2 beers during the weekday and over the weekend he drinks whiskey or 6-8 beers in the weekend. 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 OBJECTIVE: GENERAL: On arrival to the Emergency Room, he looked well and was clearly in no apparent respiratory distress. No pallor, jaundice, cyanosis, or thyromegaly. No jugular venous distension. No lower limb edema. VITAL SIGNS: His heart rate was 83, blood pressure was 131/80, temperature was 97.8, respiratory rate 20, and oxygen saturation was 97% on room air. HEAD, EYES, EARS, NOSE, THROAT: Showed normocephalic, atraumatic. NECK: Supple. HEART: Showed normal first and second heart sounds. No gallop, rub or murmur. CHEST: Clear to auscultation. No crepitation or rhonchi. ABDOMEN: Slightly distended, soft. Tenderness mostly in the left upper quadrant. There is no guarding or rigidity. No organomegaly. All hernial orifices intact. Bowel sounds normal. NEUROLOGIC: He is awake, alert, responding appropriately. All his cranial nerves are intact. EXTREMITIES: He moves extremities without difficulty. LABORATORY DATA AND IMAGING: His lab work showed a white cell count 14,600, hemoglobin 18, hematocrit 52, MCV 91, platelet count 262,000 with normal manual differential. Serum sodium was 137, potassium 4.2, chloride 103, bicarbonate 22, anion gap of 12, BUN 17, creatinine 1.4, estimated GFR was 53 mL per minute, his glucose 149, calcium was 9.3. Lactic acid was 2.1. Total bilirubin, AST, ALT, alkaline phosphatase were normal. Total protein was 7.8, albumin was 4.4. Lipase 137. As I stated, his CT scan of the abdomen and pelvis showed that he has what seems to be colitis rather than diverticulitis. PLAN: We will continue with his IV Cipro and Flagyl. Continue with IV fluid, IV antiemetic, and pain management. We will repeat all his lab works. Start him on a clear liquid diet and advance as tolerated. DESTINEE WILLIS MD DR: CHICHI/fidencio JOB#: [id number] / [id number]
[2018-07-08 18:54] VITALS: BP 114/55
[2018-07-08 19:33] VITALS: BP 117/56
[2018-07-08] MEDS: CIPROFLOXACIN 400MG PREMIX 200 ML IV SCH (21:05)
[2018-07-08 23:00] VITALS: BP 117/68
[2018-07-08] MEDS: IV NORMAL SALINE 1,000ML 1,000 ML IV SCH (23:41)
[2018-07-09 05:30] VITALS: BP 118/65
[2018-07-09 07:15] LABS: CALCIUM 7.9 mg/dL (8.5-10.1); CREATININE 1.2 mg/dL (0.7-1.3); GFR 63.6; POTASSIUM 3.6 mmol/L (3.5-5.1)
[2018-07-09 07:19] LABS: HEMATOCRIT 42.4 % (39.0-53.0); HEMOGLOBIN 14.8 g/dL (13.0-17.5); RED BLOOD COUNT 4.63 x10^6/uL (4.30-5.70); RED CELL DISTRIBUTION WIDTH 13.3 % (11.5-14.5); WHITE BLOOD COUNT 5.5 x10^3/uL (4.0-11.0)
[2018-07-09] MEDS: CIPROFLOXACIN 400MG PREMIX 200 ML IV SCH (08:15)
[2018-07-09] MEDS: IV NORMAL SALINE 1,000ML 1,000 ML IV SCH (11:06)
[2018-07-09 11:13] VITALS: BP 116/62
[2018-07-09] MEDS ORDERED: IBUPROFEN 800 MG TABLET. PO PRN (12:00)
[2018-07-09 15:30] VITALS: BP 118/58
[2018-07-09] MEDS ORDERED: METR-84 PO (15:42)
--- NOTE | 2018-07-09 18:20 | DS ---
DATE OF DISCHARGE: 07/09/2018 HOSPITAL COURSE: The patient is a 53-year-old male patient who came again with the complaint of recurrent bouts of nausea, but no vomiting. He has also recurrent episodes of diarrhea and abdominal pain started at night and worsened yesterday morning, described as a dull, fluctuating in intensity, similar to previous episode of diverticulitis, had chills and body aches associated with this pain. He did have nausea. His pain has been worse with movement and palpation. He has no alleviating factor. He was basically admitted. He was extensively investigated in the Emergency Room and was found to have leukocytosis. CT scan of the abdomen and pelvis showed that he had previous inflammatory changes from CT abdomen has predominantly resolved, but has mild colonic wall thickening in the region of the previous inflammation. The patient was admitted with acute colitis. We did start him on IV ciprofloxacin, Flagyl and started him on a clear liquid diet and advanced as tolerated. He did very well today. He has no problem with his diet, has no further episodes of diarrhea. He has only 1 episode of loose bowel movement today and a decision was made to discharge him home to continue on oral Cipro and Flagyl. He was strongly advised against drinking alcohol ____ reaction with Flagyl and that he will probably needs a colonoscopy to look into that area further. PHYSICAL EXAMINATION: GENERAL: When I examined today, he looked well and was clearly in no apparent respiratory distress. No pallor, jaundice, cyanosis, or thyromegaly. No jugular venous distension. No limb edema. VITAL SIGNS: His heart rate was 70, blood pressure 116/62, temperature was 97.3, respiratory rate was 14 and oxygen saturation was 97%. HEAD, EYES, EARS, NOSE AND THROAT: Showed normocephalic, atraumatic. NECK: Supple. HEART: Showed normal first and second heart sounds. No gallop, rub or murmur. CHEST: Clear to auscultation. No crepitation or rhonchi. ABDOMEN: Distended, soft, nontender. NEUROLOGIC: He was awake, alert, responding appropriately. Cranial nerves are intact. He moves extremities without difficulty. LABORATORY DATA: Lab work this morning showed a white cell count is down from 14,600 down to 5,500, hemoglobin 14, hematocrit 42, MCV 92, and platelet count 277,000. Serum sodium was 139, potassium 3.6, chloride 105, bicarbonate 24, anion gap of 10, BUN 10, creatinine 1.2, estimated GFR was 64 mL per minute. Her glucose was 94 and calcium was 7.9. ASSESSMENT: 1. Acute colitis. 2. Seasonal allergy. DISCHARGE MEDICATIONS: The plan is to discharge home to continue on ciprofloxacin 500 mg twice a day for another 8 days and Flagyl 500 mg 3 times a day. The patient was advised to followup with his primary care physician and he should have a colonoscopy if not one done recently. DESTINEE WILLIS MD DR: CHICHI/fidencio JOB#: [id number] / [id number]
[2018-07-09] MEDS ORDERED: LACTOBACILLUS RHAMNOSUS GG 1 CAPSULE. PO SCH (21:00)
== END 2018-07-09 15:55 | disposition home or self-care (01) | DRG 872 ==
LOC: ER 09:21 → ICU 11:10
PROVIDERS: ADMIT Internal Medicine; ATTEND Internal Medicine
DX: A41.9 Sepsis, unspecified organism (principal); E87.2 Acidosis; K52.9 Noninfective gastroenteritis and colitis, unspecified; J30.2 Other seasonal allergic rhinitis; Z81.8 Family history of other mental and behavioral disorders; Z82.49 Family history of ischemic heart disease and other diseases of the circulatory system; Z85.820 Personal history of malignant melanoma of skin; Z83.3 Family history of diabetes mellitus; Z79.899 Other long term (current) drug therapy
CPT/HCPCS: 36415; 74177; 80048; 80053; 83605; 83690; 85025; 85027; 87040; 87641; 96361; 96365; 96366; 96375; J0744; J2405; J3010; J3490; Q9967; 99285-25; J7030